=== PATIENT | male | born 1955 | race Caucasian/White ===

== ENCOUNTER 2021-12-02 06:58 | Day surgery (SDC) | payer OTHER ==
[~2021-12-02] VITALS: Ht 190.5 cm; Wt 107.0 kg
[~2021-12-02 06:58] MED LIST: ELIQUIS5 M2 PO; METO50ER PO
--- NOTE | 2021-12-02 08:59 | NUR ---
PT TOLERATED EMILY/ CARDIOVERSION WELL. DELILAH [employer] MANAGER IN ROOM FOR ECHO PER DR CANO. VSS. VARGAS.
[2021-12-02] MEDS ORDERED: Lisinopril2.5 MG PO (10:19)
--- NOTE | 2021-12-02 10:30 | NUR ---
DR CANO IN THE ROOM DISCUSSING PLAN OF CARE. VSS. VARGAS.
--- NOTE | 2021-12-02 10:40 | NUR ---
PT AND S/O VERBALIZES UNDERSTANDING WRITTEN AND VERBAL INSTRUCTIONS. VSS. DENIES QUESTIONS OR CONCERNS. IV DC'D. CATH INTACT. PRESSURE DSG IN PLACE. PT DC TO HOME VIA S/O BY WC.
== END 2021-12-02 22:50 | disposition home or self-care (01) ==
LOC: MHTC 06:58
DX: I48.91 Unspecified atrial fibrillation (principal); E66.9 Obesity, unspecified; R73.03 Prediabetes; G47.33 Obstructive sleep apnea (adult) (pediatric); H91.90 Unspecified hearing loss, unspecified ear; F12.90 Cannabis use, unspecified, uncomplicated; I50.20 Unspecified systolic (congestive) heart failure; N28.9 Disorder of kidney and ureter, unspecified; R06.09 Other forms of dyspnea; Z79.01 Long term (current) use of anticoagulants; Z68.31 Body mass index [BMI] 31.0-31.9, adult
CPT/HCPCS: 92960; 93005; 93010; 93306; 93312; 93325; A9270; J7030

== ENCOUNTER 2021-12-17 10:26 | Day surgery (SDC) | payer OTHER ==
[~2021-12-17 10:26] MED LIST changes: +Lisinopril2.5 MG PO
[2021-12-17] MEDS ORDERED: AMIODARONE HCL400 M2 PO (11:06)
--- NOTE | 2021-12-17 12:24 | NUR ---
PT VERBALIZED UNDERSTANDING OF WRITTEN AND VERBAL D/C INST. IV REMOVED. SR/SB 58-60. PT TAKEN OUT OF THE [facility]ENTER VIA W/C.
== END 2021-12-17 23:33 | disposition home or self-care (01) ==
LOC: MHTC 10:26 → ORSCMMR 10:28 → MHTC 10:39
DX: I48.91 Unspecified atrial fibrillation (principal)
CPT/HCPCS: 92960; 93005; 93010; J2704

== ENCOUNTER 2022-09-23 06:32 | Day surgery (SDC) | payer MEDICARE ==
[~2022-09-23 06:32] MED LIST changes: +AMIODARONE HCL100 M3 PO; +AMIODARONE HCL400 M2 PO; +THERA-D2000 UNIT PO
--- NOTE | 2022-09-23 07:59 | NUR ---
JAYME GURROLA AND INDY IN ROOM.
--- NOTE | 2022-09-23 08:04 | NUR ---
ONE 200J SYNCHRONIZED SHOCK DELIVERED; PT TOLERATED WELL.
--- NOTE | 2022-09-23 08:15 | NUR ---
PT AWAKE AND TAKING; CALL LIGHT IN REACH.
--- NOTE | 2022-09-23 08:59 | NUR ---
DISCHARGE INSTRUCTIONS REVIEWED ALL QUESTIONS ANSWERED. 20 G IV DISCONTINUED FROM RIGHT AC WITH INTACT CANNULA. PT ESCORTED OUT VIA WHEELCHAIR ESCORT.
== END 2022-09-23 22:41 | disposition home or self-care (01) ==
LOC: MHTC 06:32
DX: I48.91 Unspecified atrial fibrillation (principal); I11.0 Hypertensive heart disease with heart failure; I50.22 Chronic systolic (congestive) heart failure; G47.33 Obstructive sleep apnea (adult) (pediatric); R06.00 Dyspnea, unspecified; Z79.01 Long term (current) use of anticoagulants; E66.9 Obesity, unspecified; Z68.29 Body mass index [BMI] 29.0-29.9, adult
CPT/HCPCS: 92960; 93005; 93010; J2001; J2370; J2704; J7120

== ENCOUNTER → 2023-10-26 | Outpatient (CLI) | payer MEDICARE | LOC: LAB SHORT 14:49 → LAB 14:49 | DX: L82.1 Other seborrheic keratosis (principal) | CPT/HCPCS: 88305 ==

== ENCOUNTER → 2025-02-05 | Outpatient (CLI) | payer OTHER | END | disposition home or self-care (01) | LOC: LAB 19:05 → LAB SHORT 19:05 | DX: H92.02 Otalgia, left ear (principal) | CPT/HCPCS: 87070; 87205 ==